=== PATIENT | female | born 1970 | race Caucasian/White ===

== ENCOUNTER 2016-11-15 11:00 | Day surgery (SDC) | payer OTHER ==
[~2016-11-15 11:00] MED LIST: RINGERS SOLUTION,LACTATED 1,000 ML IV PRN
[2016-11-15 11:23] LABS: Hematocrit 38.1 % (37.0-47.0); Hemoglobin 12.8 gm/dL (12.5-16.0); Mean Cell Volume 85.8 fl (78-100); Mean Corpuscular Hemoglobin 28.8 pg (27-31); Mean Corpuscular Hgb Conc 33.6 g/dl (32-36); Mean Platelet Volume 9.6 fl (6.0-9.5); Neutrophil # 4.9 K/mm3 (1.3-6.0); Neutrophil % 70.5 % (42-75.0); Platelet Count 380 K/mm3 (150-450); Red Blood Count 4.44 M/mm3 (4.2-5.4)
[2016-11-15] MEDS ORDERED: ACETAMINOPHEN 500 MG TABLET PO PRN (12:56)
[2016-11-15] MEDS ORDERED: IBUPROFEN 600 MG TABLET PO PRN (12:56)
--- NOTE | 2016-11-15 13:34 | OR ---
Operative Report - Dictated Report Narrative: Operative Report 11/15/16 Hysteroscopy Dilatation and Curettage Preoperative Diagnosis: Menorrhagia, Cervical Stenosis Postoperative Diagnosis: Menorrhagia, Cervical Stenosis Procedure: Hysteroscopy Dilatation and Curettage Surgeon: Tessy Heaton M.D. Anesthesia: Mekhi Kapadia HAND DECORATOR IV sedation Findings: Uterine sound was 9 cm. There was no evidence of submucosal fibroid or endometrial polyp. Fluids: 550 ml EBL: Minimal Drains: None Complications: None Condition: Stable Pathology: Endometrial curettings Procedure: The patient was taken to the operating room with IV fluids running. She was placed in the dorsal lithotomy position after anesthesia was induced. A bivalve speculum was placed in the vagina. The anterior lip of the cervix was grasped with a single-tooth tenaculum. 2.5 mm hysteroscope was used to naviage the endocervical canal. Uterine sound was passed into the endometrial cavity with ease. Uterine sound was 8.5 cm. The cervix was dilated with Kyle dilators. The hysteroscope was introduced into the endometrial cavity. The cavity was distended with normal saline. [place] were visualized bilaterally. There was no evidence of submucosal fibroid or endometrial polyp. The hysteroscope was removed. The cavity was sharply curetted without difficulty. The hysteroscope was once again introduced into the cavity. The cavity was completely curetted. The hysteroscope was removed. The single-tooth tenaculum was removed. Sites were hemostatic. The speculum was removed from the vagina. Sponge counts were correct 2. The patient tolerated the procedure well.
[2016-11-15 14:33] VITALS: BP 145/80
== END 2016-11-15 11:01 | disposition home or self-care (01) ==
LOC: AMB 11:00
PROVIDERS: ATTEND Obstetrics & Gynecology
PROC: 0UDB8ZX Extraction of Endometrium, Via Natural or Artificial Opening Endoscopic, Diagnostic (ICD-10-PCS; principal; 2016-11-15 12:30)
DX: N88.2 Stricture and stenosis of cervix uteri (principal); N92.0 Excessive and frequent menstruation with regular cycle; E11.9 Type 2 diabetes mellitus without complications; Z68.28 Body mass index [BMI] 28.0-28.9, adult

== ENCOUNTER 2017-02-28 09:33 | Observation (INO) | payer OTHER ==
[~2017-02-28 09:33] MED LIST changes: +RINGER'S SOLUTION,LACTATED 1,000 ML IV PRN; -RINGERS SOLUTION,LACTATED 1,000 ML IV PRN; +ceFAZolin SODIUM 1 GM VIAL IV PRN; +ceFAZolin SODIUM 2 GM in DEXTROSE 5 % IN WATER 50 ML IV PRN
[2017-02-28 10:00] LABS: Hematocrit 36.3 % (37.0-47.0); Hemoglobin 12.3 gm/dL (12.5-16.0); Mean Cell Volume 85.6 fl (78-100); Mean Corpuscular Hgb Conc 33.9 g/dl (32-36); Mean Platelet Volume 9.1 fl (6.0-9.5); Neutrophil # 4.9 K/mm3 (1.3-6.0); Neutrophil % 70.9 % (42-75.0); Platelet Count 364 K/mm3 (150-450); Red Blood Count 4.24 M/mm3 (4.2-5.4); Red Cell Distribution Width 13.4 % (11.5-14.0); White Blood Count 6.9 K/mm3 (4.0-10.5)
[2017-02-28] MEDS ORDERED: RINGER'S SOLUTION,LACTATED 1,000 ML IV ONE (10:05)
[2017-02-28] MEDS ORDERED: BUPIVACAINE HCL/EPINEPHRINE 50 ML VIAL IJ ONE ×2 (11:55)
--- NOTE | 2017-02-28 14:18 | OR ---
Operative Report - Dictated Report Narrative: Operative Report - 02/28/17 Total Vaginal Hysterectomy, Bilateral Salpingectomy Preoperative Diagnosis: Menorrhagia, Fibroid Uterus Postoperative Diagnosis: Menorrhagia, Fibroid Uterus Procedure: Total Vaginal Hysterectomy, Bilateral Salpingectomy Surgeon: Suzanne Malagon Anesthesia: Mekhi Kapadia MUSIC ORCHESTRATOR, General with ET tube Findings: Normal appearing tubes and ovaries. Uterus boggy. Fluids: 900 ml EBL: 300 ml Drains: Straight cath after procedure, 50 mL of clear yellow urine Pathology: Uterus Complications: None Condition: Stable Procedure: The patient was taken to the operating room with IV fluids running. She was placed in the dorsal lithotomy position after anesthesia was induced. She was prepped and draped in the normal sterile fashion. A weighted speculum was placed in the posterior aspect of the vagina and a Cyrus retractor was placed in the anterior aspect of the vagina. Breisky retractors were placed laterally. The cervix was grasped with 2 single-tooth tenaculums. The cervix was injected circumferentially with 0.5% Marcaine with epinephrine. A circumferential incision was made around the cervix using a Khan Stevenson scissors. Attention was then turned posteriorly. Sharp dissection was performed until the posterior peritoneal reflection was clearly visualized. The peritoneum was then entered sharply. Location was confirmed by visualization of the bowel. [place] retractor was then placed into the abdominal cavity. Attention was then turned anteriorly. Sharp dissection was performed until the anterior peritoneal reflection was visualized. It was entered sharply using the Khan Stevenson scissors. Location was confirmed by visualization of bowel. The [place] retractor was then placed into the abdominal cavity. Attention was then turned posteriorly. The uterosacral ligaments were clamped with a curved Mahi, transected and suture ligated using 0 Vicryl. Attention was then turned to the cardinal ligaments. They were clamped with the Mahi clamp, transected and suture ligated with 0 vicryl. The uterine arteries and broad ligament were clamped with the Thunderbeat open extended jaw, cauterized and transected for excellent hemostasis. The cornual angles were clamped, cauterized and transected with the Thunderbeat open extended jaw. The uterus was amputated. The right ovary was visualized and grossly normal in appearance. It was cuaterized for excellent hemostatsis. The tubes and ovaries were clearly visualized and were grossly normal in appearance. The right fallopian tube was identified and was grasped and elevated. Thunderbeat open extended jaw was used to cauterize and transect along the mesoovarium remove the tube from the cornual angle and mesoovarium. This was repeated on the left fallopian tube. The posterior vaginal cuff was reapproximated using 2-0 Vicryl in a running locked fashion for excellent hemostasis. The vaginal cuff was closed in a vertical fashion with 2-0 Vicryl in a running lock stitch for excellent hemostasis. The cardinal and uterosacral ligaments were tied together in the midline to aid in elevation of the vaginal cuff. Ther e was excellent elevation at the end of the procedure. The bladder was catheterized and clear yellow urine was drained. The patient tolerated the procedure well. Sponge lap needle and instrument counts are correct x 2. The patient was taken to the recovery room in stable condition.
[2017-02-28] MEDS: IBUPROFEN 600 MG TABLET PO PRN (15:20)
[2017-02-28] MEDS: HYDROcodone/ACETAMINOPHEN 1 EACH TABLET PO PRN ×2 (15:21→20:57)
[2017-02-28] MEDS: HYDROcodone/ACETAMINOPHEN 1 EACH TABLET PO SCH ×2 (16:16→16:19)
--- NOTE | 2017-02-28 17:13 | HP ---
Chief Complaint - Chief Complaint Date of Service: 02/28/17 Time of Service: 17:00 Chief Complaint: Postoperative pain History of Present Illness: The patient is a 46 year old female who is being admitted after TVH and bilateral salpingectomy today. Surgery was uncomplicated. Over the past 1-2 hours the patient's pain has been 6 out of 10. She received on [place] but pain did not improve and then received another [place] 30 minutes ago and her pain has not improved. She was just sitting up and feels lightheaded and improved with lying down. She denies any chest pain or shortness of breath. Her pain is mostly in her pelvis a little more on the right than on the left. She describes waves of pain with differing intensity and her pain after palpation is now 7 ot of 10, dull achy pain. She reports no nausea. - Patient's Past Medical History Patient History - Medical: Diabetes Type 2, Other Patient History - Cardiac/Respiratory: No pertinent hx Patient History - Cancer: No Hx of Cancer Patient History - Surgical Procedures: Appendectomy, Cholecystectomy, D & C, Hysterectomy, T & A, Other - Bilateral Salpingectomy, LEEP, Stapedectomy Patient History - Other: None LMP (females 10-50): last week - Family History Mother Family History - Cardiac/Respiratory: Hypertension Family History - Cancer: Breast Father Family History - Medical: , Other Family History - Cardiac/Respiratory: No pertinent hx Family History - Cancer: No pertinent family hx Grandmother-Paternal Family History - Medical: Diabetes Type 2 Family History - Cardiac/Respiratory: No pertinent hx Family History - Cancer: No pertinent family hx - Social History Living Situations: spouse Abuse History: No History of abuse Psych History: No pertinent hx Smoking Status: Never smoker Alcohol Use: rarely Drug Use: none Review Of Systems (GEN) - Review of Systems Generalized/Overall Review: Absent: Chills, Fever Respiratory: Absent: Shortness of Breath Cardiac: Absent: Chest Pain Abdominal: Absent: Nausea, Vomiting Genitourinary: Absent: Urgency, Frequency Allergies/Adverse Reactions: Allergies Allergy/AdvReac Type Severity Reaction Status Date / Time acetaminophen [From Percocet] Allergy Intermediate CHEST Verified 02/28/17 09:53 PAIN, BURNING oxycodone [From Percocet] Allergy Intermediate CHEST Verified 02/28/17 09:53 PAIN, BURNING iron Allergy Mild Hives Verified 02/28/17 09:53 Influenza Virus Vaccines AdvReac Mild WELT AT Verified 02/28/17 09:53 INJECTION SITE Home Medications: HOME MEDICATIONS traZODone HCL [Desyrel] 100 mg PO HS 07/02/14 [Last Taken Unknown] Atorvastatin Calcium [Lipitor] 20 mg PO HS 11/11/16 [Last Taken Unknown] Fluticasone Propionate [Flonase] 2 spray NS DAILY 11/11/16 [Last Taken Unknown] Ibuprofen [Motrin] 200 mg PO Q6H PRN 11/11/16 [Last Taken Unknown] Norethindrone [Micronor] 0.35 mg PO DAILY 11/11/16 [Last Taken Unknown] Mometasone Furoate [Nasonex] 2 spray NS DAILY 02/27/17 [Last Taken Unknown] HYDROcodone/ACETAMINOPHEN [[place] 5-325] 1 each PO Q6H PRN #20 tablet 02/28/17 [ Last Taken Unknown] Ibuprofen [Motrin] 600 mg PO Q6H PRN #30 tablet 02/28/17 [Last Taken Unknown] Exam - Exam Vital Signs: Vital Signs - Last Taken Temp 37.1 C 02/28/17 14:55 Pulse 76 02/28/17 16:55 Resp 16 02/28/17 16:55 BP 106/48 02/28/17 16:55 Pulse Ox 98 02/28/17 16:55 Constitutional: Present: Alert, Well developed, Well nourished, Mild distress Respiratory: Present: lungs clear, normal breath sounds Cardiovascular/Chest: Present: regular rate, rhythm Abdomen: Present: soft, tender, guarding, suprapubic tenderness. Absent: rigidity, rebound tenderness Appearance: Present: appropriate appearance Diagnostic Studies: Abnormal Lab Results 02/28/17 Range/Units 09:58 Hgb 12.3 L (12.5-16.0) gm/dL Hct 36.3 L (37.0-47.0) % Laboratory Results WBC 6.9 K/mm3 (4.0-10.5) 02/28/17 09:58 RBC 4.24 M/mm3 (4.2-5.4) 02/28/17 09:58 Hgb 12.3 gm/dL (12.5-16.0) L 02/28/17 09:58 Hct 36.3 % (37.0-47.0) L 02/28/17 09:58 MCV 85.6 fl (78-100) 02/28/17 09:58 MCH 29.0 pg (27-31) 02/28/17 09:58 MCHC 33.9 g/dl (32-36) 02/28/17 09:58 RDW 13.4 % (11.5-14.0) 02/28/17 09:58 Plt Count 364 K/mm3 (150-450) 02/28/17 09:58 MPV 9.1 fl (6.0-9.5) 02/28/17 09:58 Immature Gran % (Auto) 0.40 % (0.001-0.429) 02/28/17 09:58 Immature Gran # (Auto) 0.03 K/mm3 (0.000-0.0310) 02/28/17 09:58 Neutrophils % 70.9 % (42-75.0) 02/28/17 09:58 Lymphocytes % 23.1 % (20-51) 02/28/17 09:58 Monocytes % 3.9 % (0.0-9) 02/28/17 09:58 Eosinophils % 0.7 % (0.0-3.0) 02/28/17 09:58 Basophils % 1.0 % (0.0-1.0) 02/28/17 09:58 Nucleated RBC % 0.0 k/mm3 (0-1) 02/28/17 09:58 Neutrophils # 4.9 K/mm3 (1.3-6.0) 02/28/17 09:58 Lymphocytes # 1.6 k/mm3 (1.5-3.5) 02/28/17 09:58 Monocytes # 0.3 k/mm3 (0.0-1.0) 02/28/17 09:58 Eosinophils # 0.1 k/mm3 (0.0-0.7) 02/28/17 09:58 Absolute Basophils 0.1 k/mm3 (0.0-0.1) 02/28/17 09:58 Urine HCG, Qual Negative (NEGATIVE) 02/28/17 09:58 Assessment/Plan - Assessment/Plan (1) Postoperative pain Assessment: The patient is a 46 year old who is postoperative from TVH and Bilateral Salpingectomy today. She will be admitted for postoperative pain control. There were no intraoperative complications. She was resting comfortably but when she woke she was having pain rated as a 6 out of 10 in the pelvis. She has received 2 [place] but there has been no improvement of the pain. She also has some complaint of lightheadedness with sitting and standing. It could be due to the pain medication or could be due to intraabdominal bleeding. At this time, it seem that her pain is most likely that we did not get her pain medication soon enough and therefore she is requiring more pain medication to get it under control. However, will draw stat CBC to ensure that there has not been a large drop in her blood counts from intraabdominal bleeding. She is not tachycardic or severely hypotensive. Will continue to monitor vitals signs closely. Will consider bladder catheterization if her blood counts have dropped significantly. Problem: Acute
[2017-02-28 17:28] LABS: Hematocrit 30.9 % (37.0-47.0); Hemoglobin 10.4 gm/dL (12.5-16.0); Mean Cell Volume 87.5 fl (78-100); Mean Corpuscular Hemoglobin 29.5 pg (27-31); Mean Corpuscular Hgb Conc 33.7 g/dl (32-36); Mean Platelet Volume 9.5 fl (6.0-9.5); Neutrophil # 13.5 K/mm3 (1.3-6.0); Neutrophil % 93.5 % (42-75.0); Platelet Count 333 K/mm3 (150-450); Red Blood Count 3.53 M/mm3 (4.2-5.4); Red Cell Distribution Width 13.6 % (11.5-14.0); White Blood Count 14.4 K/mm3 (4.0-10.5)
[2017-02-28] MEDS: MORPHINE SULFATE 2 MG/ML DISP.SYRIN IV PRN ×2 (17:42→18:05)
[2017-02-28] MEDS ORDERED: ONDANSETRON HCL/PF 2 MG/ML VIAL IV ONE ×2 (18:02→18:15)
[2017-02-28] MEDS: DOCUSATE SODIUM 100 MG CAPSULE PO SCH (20:57)
[2017-02-28 23:08] LABS: Hematocrit 28.4 % (37.0-47.0); Hemoglobin 9.5 gm/dL (12.5-16.0); Mean Cell Volume 87.4 fl (78-100); Mean Corpuscular Hemoglobin 29.2 pg (27-31); Mean Corpuscular Hgb Conc 33.5 g/dl (32-36); Mean Platelet Volume 9.6 fl (6.0-9.5); Neutrophil # 11.2 K/mm3 (1.3-6.0); Neutrophil % 95.5 % (42-75.0); Platelet Count 319 K/mm3 (150-450); Red Blood Count 3.25 M/mm3 (4.2-5.4); Red Cell Distribution Width 13.6 % (11.5-14.0); White Blood Count 11.8 K/mm3 (4.0-10.5)
[2017-03-01] MEDS: HYDROcodone/ACETAMINOPHEN 1 EACH TABLET PO PRN ×3 (03:09→12:27)
[2017-03-01 06:01] LABS: Hemoglobin 9.5 gm/dL (12.5-16.0); Mean Cell Volume 89.5 fl (78-100); Mean Corpuscular Hemoglobin 29.3 pg (27-31); Mean Corpuscular Hgb Conc 32.8 g/dl (32-36); Mean Platelet Volume 9.7 fl (6.0-9.5); Neutrophil # 13.8 K/mm3 (1.3-6.0); Neutrophil % 91.5 % (42-75.0); Platelet Count 306 K/mm3 (150-450); Red Blood Count 3.24 M/mm3 (4.2-5.4); Red Cell Distribution Width 13.6 % (11.5-14.0); White Blood Count 15.1 K/mm3 (4.0-10.5)
[2017-03-01] MEDS ORDERED: BISACODYL 10 MG SUPP.RECT RC ONE ×2 (07:04→10:40)
--- NOTE | 2017-03-01 08:41 | DS ---
(1) Postoperative pain Problem: Acute Description of Stay: Patient was admitted after her TVH and bilateral salpingectomy for postoperative pain management. She had po pain medication that was not adequately controlling her pain and was given 2 mg Morphine which slightly improved her pain. There was concern for possible intraabdominal bleeding and serial CBC remained stable. Her pain is moderately controlled with po medication. However, patient disclosed this am that she has not had a bowel movement in the past 3 days which could be a source of her pain as well. She was started on a stool softener, Metamucil and given a Dulcolax suppository. She is currently working on having a bowel movement. Patient's pain is stable and she will be discharged home on po Noroc and Ibuprofen. I suspect that her pain is just routine postoperative exacerbated by constipation. Procedures Performed: none Results and Findings: On examination today, she is alert and sitting comfortably despite her somewhat high pain scale reading. Her abdomen is soft nondistended and appropriately uncomfortable. She has no guarding, rebound or rigidity. Discharge Disposition: Home self care Disposition: Home self-care Condition: Good Discharge Activity: Other - No lifting, bending, squatting, vacuuming, laundry, scrubbing floors. No sexual intercourse, tampons, baths, swimming. These restrictions are for 6 weeks postoperative. 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 Heaton in office on April 10, 2017 at 9:[address] Heaton with any questions or concerns, . Prescriptions (Any new or edited meds): Docusate Sodium [Colace] 100 mg PO BID #60 capsule HYDROcodone/ACETAMINOPHEN [[place] 5-325] 1 each PO Q6H PRN #20 tablet PRN Reason: Pain Ibuprofen [Motrin] 600 mg PO Q6H PRN #60 tablet PRN Reason: Moderate Pain Complete Home Medications List: Complete Home Medication List: traZODone HCL [Desyrel] 150 mg PO HS 07/02/14 Atorvastatin Calcium [Lipitor] 20 mg PO HS 11/11/16 Fluticasone Propionate [Flonase] 2 spray NS DAILY 11/11/16 Ibuprofen [Motrin] 200 mg PO Q6H PRN 11/11/16 Mometasone Furoate [Nasonex] 2 spray NS DAILY 02/27/17 HYDROcodone/ACETAMINOPHEN [[place] 5-325] 1 each PO Q6H PRN #20 tablet 02/28/17 Ibuprofen [Motrin] 600 mg PO Q6H PRN #30 tablet 02/28/17 Multivitamin [Multivitamins] 1 each PO DAILY 02/28/17 Docusate Sodium [Colace] 100 mg PO BID #60 capsule 03/01/17 HYDROcodone/ACETAMINOPHEN [[place] 5-325] 1 each PO Q6H PRN #20 tablet 03/01/17 Ibuprofen [Motrin] 600 mg PO Q6H PRN #60 tablet 03/01/17 Psyllium Husk (with Sugar) [Metamucil] 1 each PO DAILY packet 03/01/17
[2017-03-01] MEDS ORDERED: PSYLLIUM SEED 1 PACKET PACKET PO SCH (09:00)
[2017-03-01] MEDS: IBUPROFEN 600 MG TABLET PO PRN (09:00)
[2017-03-01] MEDS: DOCUSATE SODIUM 100 MG CAPSULE PO SCH (09:00)
[2017-03-01 09:47] VITALS: BP 149/48
== END 2017-03-01 14:15 | disposition home or self-care (01) ==
LOC: AMB 09:33 → INTOOBSV 17:29 → MS 17:29
PROVIDERS: ADMIT Family Medicine; ATTEND Obstetrics & Gynecology
PROC: 0UTC7ZZ Resection of Cervix, Via Natural or Artificial Opening (ICD-10-PCS; 2017-02-28)
PROC: 0UT7FZZ Resection of Bilateral Fallopian Tubes, Via Natural or Artificial Opening With Percutaneous Endoscopic Assistance (ICD-10-PCS; 2017-02-28)
PROC: 0UT9FZZ Resection of Uterus, Via Natural or Artificial Opening With Percutaneous Endoscopic Assistance (ICD-10-PCS; principal; 2017-02-28 12:15)
DX: N92.0 Excessive and frequent menstruation with regular cycle (principal); D25.1 Intramural leiomyoma of uterus; G89.18 Other acute postprocedural pain
CPT/HCPCS: 36415; 58552; 84703; 85025; 88307; 96374; 96375; G0378; J2405